=== PATIENT | male | born 1975 | race Caucasian/White ===

== ENCOUNTER 2017-09-22 08:30 | Emergency (ER) | payer OTHER ==
[2017-09-22 08:36] VITALS: TEMP 98.1; O2SAT 96
--- NOTE | 2017-09-22 09:22 | CPEKG ---
Heart Rate: 55 RR Interval: 1091 P-R Interval: 196 QRSD Interval: 100 QT Interval: 412 QTC Interval: 394 P [place]: 75 QRS [place]: 35 T Wave [place]: 62 EKG Severity - NORMAL ECG - EKG Impression: SINUS RHYTHM Electronically Signed By: Dae De Leon 22-Sep-2017 13:51:09
--- NOTE | 2017-09-22 09:41 | EDPHY ---
H & P Time Seen by Provider: 09/22/17 09:22 HPI/ROS: CHIEF COMPLAINT: Chest pain HISTORY OF PRESENT ILLNESS: 41-year-old male presents to the emergency department with chest discomfort that began last night. The patient recently traveled from [facility] to [place]. He return to [place] yesterday. The patient feels the usual tired and fatigue after foreign travel which she has been doing frequently this year. He denies pleuritic chest pain. He does not feel short of breath. He feels a pressure sensation in his chest. He has never had this in the past. He states that he was afraid to go to sleep last night. He denies pain or cramping in his lower legs. He is a nonsmoker. He does not abuse drugs. REVIEW OF SYSTEMS: Constitutional: No fever, no chills. Eyes: No double or blurry vision. ENT: No sore throat. Respiratory: No cough, no shortness of breath. Cardiac: Chest pressure as above Gastrointestinal: No abdominal pain, vomiting or diarrhea. Genitourinary: No dysuria. Musculoskeletal: No neck or back pain. Skin: No rashes. Neurological: No headache. Past Medical/Surgical History: Negative Social History: Smoking Status: Never smoked Physical Exam: General Appearance: Alert, no distress. 148/79. Eyes: Pupils equal and round. Extraocular motions are all intact. ENT: Mouth: Mucous membranes moist. Respiratory: No wheezing, rhonchi, or rales, lungs are clear to auscultation. Unable to reproduce pain with palpation to the anterior aspect of the chest. Cardiovascular: Regular rate and rhythm. Gastrointestinal: Abdomen is soft and nontender, no masses, no rebound or guarding, bowel sounds normal. Neurological: Alert and oriented x 3, cranial nerves II through XII grossly intact Skin: Warm and dry, no rashes. Musculoskeletal: Nontender to palpate along the cervical, thoracic or lumbar spine. Neck is supple. Extremities: Full range of motion and no peripheral edema. Psychiatric: Patient is oriented X 3, there is no agitation. Constitutional: Initial Vital Signs Temperature (C) 36.7 C 09/22/17 08:32 Heart Rate 70 09/22/17 08:32 Respiratory Rate 20 09/22/17 08:32 Blood Pressure 148/79 H 09/22/17 08:32 O2 Sat (%) 96 09/22/17 08:32 O2 Delivery Mode Room Air Allergies/Adverse Reactions: No Known Allergies Allergy (Unverified 09/22/17 08:32) Home Medications: Medication Instructions Recorded NK [No Known Home Meds] 09/22/17 Medical Decision Making - Diagnostics Imaging Results: Imaging Impressions Chest X-Ray 09/22/17 09:38 Impression: Normal. Imaging: I viewed and interpreted images myself ED Course/Re-evaluation: 41-year-old male presents to the emergency department with chest discomfort that began yesterday. Patient recently had international travel. He denies pleuritic chest pain. He does not feel short of breath. The case was discussed with Dr. Dae De Leon, secondary supervising physician, who did not directly evaluate the patient but agrees with treatment and plan. Laboratory studies including D-dimer and troponin were all normal. Chest x-ray was unremarkable. EKG reveals normal sinus rhythm. Patient also received 1 L of IV normal saline since his states that he is chronically dehydrated. Patient was reassured. I think he is safe for discharge. I did encourage him to return to the emergency department if he developed recurring chest pain, shortness of breath, fever, or if he felt worse in any way. Patient and his are comfortable with this plan. He was told to have close follow-up with his primary care provider, Dr. Will Lewis. Differential Diagnosis: Chest pain including but not limited to myocardial ischemia, pulmonary embolus, chest wall pain, pleural inflammation and pulmonary infectious causes. - Data Points Laboratory Results: Laboratory Results 09/22/17 08:50 09/22/17 08:50 09/22/17 09/22/17 09/22/17 08:50 08:50 08:50 WBC 5.69 10^3/uL 10^3/uL (3.80-9.50) RBC 5.19 10^6/uL 10^6/uL (4.40-6.38) Hgb 16.2 g/dL g/dL (13.7-17.5) Hct 45.9 % % (40.0-51.0) MCV 88.4 fL fL (81.5-99.8) MCH 31.2 pg pg (27.9-34.1) MCHC 35.3 g/dL g/dL (32.4-36.7) RDW 12.3 % % (11.5-15.2) Plt Count 189 10^3/uL 10^3/uL (150-400) MPV 11.4 fL fL (8.7-11.7) Neut % (Auto) 38.8 % L % (39.3-74.2) Lymph % (Auto) 48.2 % H % (15.0-45.0) [place] % (Auto) 8.6 % % (4.5-13.0) Eos % (Auto) 3.0 % % (0.6-7.6) Baso % (Auto) 1.2 % % (0.3-1.7) Nucleat RBC Rel Count 0.0 % % (0.0-0.2) Absolute Neuts (auto) 2.21 10^3/uL 10^3/uL (1.70-6.50) Absolute Lymphs (auto) 2.74 10^3/uL 10^3/uL (1.00-3.00) Absolute Monos (auto) 0.49 10^3/uL 10^3/uL (0.30-0.80) Absolute Eos (auto) 0.17 10^3/uL 10^3/uL (0.03-0.40) Absolute Basos (auto) 0.07 10^3/uL 10^3/uL (0.02-0.10) Absolute Nucleated RBC 0.00 10^3/uL 10^3/uL (0-0.01) Immature Gran % 0.2 % % (0.0-1.1) Immature Gran # 0.01 10^3/uL 10^3/uL (0.00-0.10) D-Dimer < 0.27 ug/mLFEU ug/mLFEU (0.00-0.50) Sodium 145 mEq/L mEq/L (135-145) Potassium 4.2 mEq/L mEq/L (3.5-5.2) Chloride 105 mEq/L mEq/L (97-110) Carbon Dioxide 28 mEq/l mEq/l (22-31) Anion Gap 12 mEq/L mEq/L (8-16) BUN 17 mg/dL mg/dL (7-23) Creatinine 1.1 mg/dL mg/dL (0.7-1.3) Estimated GFR > 60 Glucose 94 mg/dL mg/dL (70-100) Calcium 9.9 mg/dL mg/dL (8.5-10.4) Troponin I 0.013 ng/mL ng/mL (0.000-0.034) Medications Given: Discontinued Medications Sodium Chloride (Ns) 1,000 mls @ 0 mls/hr IV ONCE ONE PRN Reason: Wide Open Stop: 09/22/17 09:44 Last Admin: 09/22/17 10:10 Dose: 1,000 mls Departure - Departure Disposition: Home, Routine, Self-Care Clinical Impression: Chest pain Qualifiers: Chest pain type: unspecified Qualified Code(s): R07.9 - Chest pain, unspecified Condition: Good Instructions: Chest Pain (ED) Additional Instructions: Return to the emergency department if you developed recurring chest pain, if you feel short of breath, or if you feel worse in any way. Referrals: Will Lewis MD [Primary Care Provider] - 2-3 days without fail
[2017-09-22] MEDS ORDERED: NS 1,000 ML IV ONE (09:43)
[2017-09-22 09:57] LABS: PLATELET COUNT 189 10^3/uL (150-400)
[2017-09-22 10:40] VITALS: RESP 18
[2017-09-22 11:15] VITALS: BP 113/69; PULSE 59
== END 2017-09-22 11:15 | disposition home or self-care (01) ==
DX: R07.9 Chest pain, unspecified (principal); E86.0 Dehydration